=== PATIENT | female | born 1940 | race Native Hawaiian/Other Pacific Islander ===

== ENCOUNTER → 2021-12-08 | Outpatient (CLI) | payer MEDICARE, OTHER | END | disposition home or self-care (01) | LOC: EDBD 08:30 → RADPV 08:30 | PROVIDERS: ATTEND Internal Medicine | DX: M81.8 Other osteoporosis without current pathological fracture (principal); M85.80 Other specified disorders of bone density and structure, unspecified site | CPT/HCPCS: 77080 ==